=== PATIENT | female | born 1975 | race Caucasian/White ===

== ENCOUNTER 2016-05-09 16:10 | Emergency (ER) | payer SELFPAY ==
[~2016-05-09] VITALS: Ht 172.7 cm; Wt 137.0 kg
[~2016-05-09 16:10] MED LIST: CIPR500T4 PO; FLAG500T PO; HYDR-3533 PO; PROM25SU8 PO; PROT40TA PO; ZOFR4TAB3 SL
[2016-05-09 16:16] VITALS: BP 130/81; PULSE 78; RESP 16; TEMP 98.5; O2SAT 97
[2016-05-09 18:10] VITALS: BP 119/68; PULSE 70; RESP 16; O2SAT 97
[2016-05-09] MEDS ORDERED: SODIUM CHLOR 0.9% 1000 ML INJ 1,000 ML IV ONE (18:13)
[2016-05-09] MEDS ORDERED: PROCHLORPERAZINE INJ 10 MG/2 ML VIAL IVP ONE (18:15)
[2016-05-09] MEDS ORDERED: MORPHINE SULFATE 4 MG/ML INJ IV PUSH ONE (18:15)
[2016-05-09] MEDS ORDERED: KETOROLAC TROMETHAMINE 30 MG/ML (IVP) VIAL IVP ONE (18:15)
[2016-05-09] MEDS ORDERED: ACETAMINOPHEN 325 MG TAB PO ONE (18:15)
[2016-05-09] MEDS ORDERED: diphenhydrAMINE HCL 50 MG/ML VIAL IVP ONE (18:15)
[2016-05-09] MEDS ORDERED: SODIUM CHLORIDE 0.9% FLUSH 5 ML FLUSH IVF PRN (18:15)
[2016-05-09 18:20] VITALS: RESP 16; O2SAT 99
[2016-05-09] MEDS ORDERED: BUTA1CAP PO (18:22)
--- NOTE | 2016-05-09 18:22 | PD ---
HPI Chief Complaint: Headache Time Seen by Provider: 18:01 Travel History International Travel<30 days: No Contact w/Intl Traveler<30days: No Traveled to known affect area: No History of Present Illness HPI The patient is a 41-year-old female who presents emergency department for headache. The patient has a history of migraines with aura and had an extensive workup performed approximately 5 years ago in [place], [place]. The patient states she was seen by neurologist and had a CT/MRI performed which was negative. The patient notes a 5 day history of migraine started in the right temporal area now radiates to the left temporal area. The patient has a throbbing sensation behind the right eye with associated photophobia, phonophobia, nausea, and vomiting. The patient denies any focal deficits and states she initially experienced flashing lights in her eyes, which is normal for her migraine aura. The patient denies any fever, chills, sweats, or posterior neck pain. She denies any history of glaucoma. Symptoms are moderate , exacerbated by history of migraines, and there are no current alleviating factors. PFSH Past Medical History Hx Anticoagulant Therapy: No Arthritis: Yes (OSTEO) Cardiovascular Problems: No Chemotherapy: No Cerebrovascular Accident: No Diabetes: No Diminished Hearing: No Diverticulitis: Yes Gastrointestinal Disorders: Yes (GALLSTONES) Respiratory: No Ulcer: Yes (ENDOSCOPY/COLONSCOPY-09/2012) ?: Not : 6 Para: 6 Miscarriage: 1 : 0 Tubal Ligation: Yes Past Surgical History Abdominal Surgery: Yes Section: Yes (2001,2003,2005) Gynecologic Surgery: Yes (CERVICAL ABLATION) Hysterectomy: Yes Social History Alcohol Use: Yes (OCCASIONAL) Tobacco Use: No Substance Use: No Allergies-Medications (Allergen,Severity, Reaction): Coded Allergies: Cortisone (Verified Allergy, Severe, HIVES AND DELUSIONS, 05/09/16) Reported Meds & Prescriptions Reported Meds & Active Scripts Active Fioricet (Kmdmqinidp-Hleqfqifsmaox-Nwbuzvvg) 50-300-40 Mg Cap 1 Cap PO Q4H PRN Reported [BC powder] Unknown Strength Unknown Dose PO DIRECTED PRN Excedrin Migraine (Nyqfxei-Kqhbpswpzyloi-Opleiazz) 250-250-65 Mg Tab 1-2 Tab PO DIRECTED Review of Systems Except as stated in HPI: all other systems reviewed are Neg General / Constitutional: No: Fever Eyes: Positive: Photophobia, No: Blurred Vision HENT: Positive: Headaches, No: Lightheadedness, Neck Pain Gastrointestinal: Positive: Nausea, Vomiting Musculoskeletal: No: Myalgias Skin: No Rash Neurologic: Positive: Headache, No: Dizziness, Focal Abnormalities, Paresthesia, Sensory Disturbance Physical Exam Narrative GENERAL: Awake, alert, pleasant 41-year-old female who appears her stated age and is in no acute respiratory distress. SKIN: Warm and dry. HEAD: Atraumatic. Normocephalic. EYES: Pupils equal and round. Patient was photophobic, pupils are 4 mm bilateral and reactive. EOMs are intact. No visible injection or haziness noted. ENT: No nasal bleeding or discharge. Mucous membranes pink and moist. No tenderness over the frontal or maxillary sinuses. NECK: Trachea midline. No JVD. No meningeal signs. MUSCULOSKELETAL: No obvious deformities. No clubbing. No cyanosis. No edema. NEUROLOGICAL: Awake and alert. No obvious cranial nerve deficits. Motor grossly within normal limits. Normal speech. Smile is symmetric. No dysarthria. No drift of the upper or lower extremities. Nonfocal on exam. PSYCHIATRIC: Appropriate mood and affect; insight and judgment normal. Data Data Last Documented VS Vital Signs Date Time Temp Pulse Resp B/P Pulse Ox O2 Delivery O2 Flow Rate FiO2 05/09/16 19:52 65 20 108/62 98 Room Air 05/09/16 19:15 98.0 Orders Ecg Monitoring (05/09/16 18:13) Iv Access Insert/Monitor (05/09/16 18:13) Oximetry (05/09/16 18:13) Sodium Chloride 0.9% Flush (Ns Flush) (05/09/16 18:15) Acetaminophen (Tylenol) (05/09/16 18:15) Ketorolac Inj (Toradol Inj) (05/09/16 18:15) Prochlorperazine Inj (Compazine Inj) (05/09/16 18:15) Diphenhydramine Inj (Benadryl Inj) (05/09/16 18:15) Sodium Chlor 0.9% 1000 Ml Inj (Ns 1000 M (05/09/16 18:13) Morphine Inj (Morphine Inj) (05/09/16 18:15) MDM Medical Decision Making Medical Screen Exam Complete: Yes Emergency Medical Condition: Yes Medical Record Reviewed: Yes Differential Diagnosis Differential diagnosis includes migraine, tension headache, glaucoma, intracranial hemorrhage, intracranial tumor, cluster headache, encephalitis, meningitis, sinusitis. Narrative Course IV was established, the patient was placed on cardiac telemetry monitoring and continuous pulse oximetry monitoring. The patient was started on IV fluids. The patient was administered morphine, Compazine, Benadryl, Toradol, and Tylenol. The patient was then monitored in the emergency department. The patient's symptoms improved, she will be discharged home on Fioricet and is advised to follow-up with a primary physician and/or neurology. Return if symptoms worsen or progress. Diagnosis Primary Impression: Migraine with aura Qualified Code: G43.111 - Intractable migraine with aura with status migrainosus Patient Instructions: General Instructions Additional Instructions: Fioricet as directed. Follow-up with neurology. Return if symptoms worsen or progress. Med/Other Pt SpecificInfo: Prescription(s) given Scripts Mzhuxjjztv-Rahovxmubkojb-Ccurvugd (Fioricet)50-300-40 Mg Cap1 Cap PO Q4H PRN ( HEADACHE) #15 CAP Ref 0 Prov:Deuce Bains MD 05/09/16 Disposition: 01 DISCHARGE HOME Condition: Stable Deuce Bains MD May 09, 2016 18:22 Deuce Bains MD May 09, 2016 18:22
[2016-05-09] MEDS ORDERED: EXCETAB PO (18:51)
[2016-05-09] MEDS ORDERED: [UNRECOGNIZED DRUG - OTHER] PO (18:51)
[2016-05-09 19:15] VITALS: BP 116/65; PULSE 65; RESP 18; TEMP 98; O2SAT 97
[2016-05-09 19:52] VITALS: BP 108/62; PULSE 65; RESP 20; O2SAT 98
[2016-05-10] MEDS ORDERED: BC FPOW12 PO (11:31)
== END 2016-05-09 20:01 | disposition home or self-care (01) ==
LOC: PHED 16:10
DX: G43.111 Migraine with aura, intractable, with status migrainosus (principal)
CPT/HCPCS: 96361; 96374; 96375; 99283; J0780; J1200; J1885; J2270; J7030

== ENCOUNTER 2017-03-12 12:12 | Emergency (ER) | payer SELFPAY ==
[~2017-03-12] VITALS: Ht 171.4 cm; Wt 144.0 kg
[~2017-03-12 12:12] MED LIST changes: +BC FPOW12 PO; +BUTA1CAP PO; -CIPR500T4 PO; +EXCETAB PO; -FLAG500T PO; -HYDR-3533 PO; -PROM25SU8 PO; -PROT40TA PO; -ZOFR4TAB3 SL
[2017-03-12 12:25] VITALS: BP 123/59; PULSE 90; RESP 18; TEMP 98.3; O2SAT 98
[2017-03-12] MEDS ORDERED: ASPI1POW8 PO (12:38)
--- NOTE | 2017-03-12 13:25 | PD ---
HPI . Numbness and tingling Chief Complaint: Numbness/Tingling Time Seen by Provider: 13:11 Travel History International Travel<30 days: No Contact w/Intl Traveler<30days: No Traveled to known affect area: No History of Present Illness HPI Patient presents with a four-day history of numbness and tingling of her left lower extremity. She has subsequently developed calf pain and swelling. She is concerned about DVT. She subsequently presents to us for evaluation. She states that her pain is worse in the morning and is worse if she has been walking on it for an extended period of time. Pain and swelling is improved when she has had her leg elevated. She rates her pain 6/10. She has no associated chest pain or shortness of breath. PFSH Past Medical History Hx Anticoagulant Therapy: No Arthritis: Yes (OSTEO) Depression: Yes Cardiovascular Problems: No Chemotherapy: No Cerebrovascular Accident: No Diabetes: No Diminished Hearing: No Diverticulitis: Yes Gastrointestinal Disorders: Yes (GALLSTONES) Respiratory: No Migraines: Yes Ulcer: Yes (ENDOSCOPY/COLONSCOPY-09/2012) Influenza Vaccination: No ?: Not : 6 Para: 6 Miscarriage: 1 : 0 Tubal Ligation: Yes Past Surgical History Abdominal Surgery: Yes Section: Yes (2001,2003,2005) Gynecologic Surgery: Yes (CERVICAL ABLATION) Hysterectomy: Yes Social History Alcohol Use: Yes (OCCASIONAL) Tobacco Use: No Substance Use: No Allergies-Medications (Allergen,Severity, Reaction): Coded Allergies: cortisone (Unverified Allergy, Severe, HIVES AND DELUSIONS, 11/25/16) Reported Meds & Prescriptions Reported Meds & Active Scripts Active Reported Bc Powder Packet (Aspirin/Caffeine) 845 Mg-65 Mg Powd.pack 1 Pack PO DIRECTED PRN Review of Systems Except as stated in HPI: all other systems reviewed are Neg Physical Exam Narrative GENERAL: Awake and alert and in no acute distress. Markedly obese. SKIN: Warm and dry. HEAD: Normocephalic/atraumatic. EYES: Pupils are equal. Extraocular movements are intact. NECK: Normal range of motion. CARDIOVASCULAR: Regular rate and rhythm. RESPIRATORY: Nonlabored respirations. MUSCULOSKELETAL: Atraumatic. Her legs are very large making the assessment for swelling difficult. She does have some tenderness to palpation of the left calf. The skin of the lower extremities has equal color and equal skin temperature. NEUROLOGICAL: Nonfocal. PSYCHIATRIC: Appropriate mood and affect. Data Data Last Documented VS Vital Signs Date Time Temp Pulse Resp B/P (MAP) Pulse Ox O2 Delivery O2 Flow Rate FiO2 03/12/17 12:31 90 18 98 03/12/17 12:25 98.3 123/59 (80) Orders Orders Us Leg Venous Doppler (03/12/17 13:17) Ed Discharge Order (03/12/17 14:40) MDM Medical Decision Making Medical Screen Exam Complete: Yes Emergency Medical Condition: Yes Differential Diagnosis Differential diagnosis of leg pain includes but is not limited to lumbar radiculopathy, arthritis, myalgias, DVT, ruptured Bella's cyst. Narrative Course This patient presents with left lower extremity numbness, tingling and pain. Her exam is not rewarding secondary to her size. Ultrasound is pending. US: Negative exam with no evidence of deep venous thrombosis. She probably has sciatica. Diagnosis Primary Impression: Left leg pain Patient Instructions: General Instructions, Sciatica (DC) Med/Other Pt SpecificInfo: Prescription(s) given Scripts Nabumetone (Nabumetone) 500 Mg Tab 500 MG PO BID for Pain-Inflammation, #60 TAB 0 Refills Prov: Yanni Dumont MD 03/12/17 Disposition: 01 DISCHARGE HOME Condition: Stable Yanni Dumont MD Mar 12, 2017 13:25
--- NOTE | 2017-03-12 14:29 | RADRPT ---
EXAM DATE/TIME: 03/12/2017 13:59 [facility] COMPARISON: No previous studies available for comparison. INDICATIONS : Left leg swelling. MEDICAL HISTORY : Cholelithiasis. Diverticulitis. Arthritis. Depression. SURGICAL HISTORY : section. Hysterectomy. Cervical ablation. Tubal ligation. ENCOUNTER: Initial ACUITY: 4 - 6 days PAIN SCORE: 4/10 LOCATION: Left leg. TECHNIQUE: Venous ultrasound of the leg was performed from the inguinal ligament to the proximal calf. Real-olvin e, color Doppler and spectral tracing, compression and augmentation techniques were used. FINDINGS: There is normal compressibility of the deep venous system from the inguinal region to the proximal ca lf. No echogenic clot is seen in the lumen of the common femoral, femoral, popliteal, and posterior tibial veins. There is a normal response of the venous system to proximal and distal augmentation an d respiration. There is an enlarged lymph node. CONCLUSION: Negative exam with no evidence of deep venous thrombosis. Ravi Anand MD on March 12, 2017 at 14:25 Board Certified Radiologist. This report was verified electronically.
[2017-03-12] MEDS ORDERED: NABU1TAB37 PO (14:42)
[2017-03-12 14:50] VITALS: BP 103/64
== END 2017-03-12 14:51 | disposition home or self-care (01) ==
LOC: PHED 12:12
DX: M79.605 Pain in left leg (principal); M79.89 Other specified soft tissue disorders
CPT/HCPCS: 93971; 99284